=== PATIENT | female | born 2000 | race Caucasian/White ===

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

== ENCOUNTER 2018-02-11 21:09 | Emergency (ER) | payer MEDICAID, OTHER ==
[~2018-02-11] VITALS: Ht 172.7 cm; Wt 59.5 kg
[~2018-02-11 21:09] MED LIST changes: -BACT800T5 PO; +METR-1 PO; -VIST25CA PO
[2018-02-11 21:18] VITALS: BP 135/55; PULSE 90; RESP 18; TEMP 98.6; O2SAT 98
--- NOTE | 2018-02-11 22:41 | PD ---
HPI Chief Complaint: GI bleed Time Seen by Provider: 22:15 Travel History International Travel<30 days: No Contact w/Intl Traveler<30days: No Traveled to known affect area: No History of Present Illness HPI 17-year-old female complains of blood in the stool. Patient states that she noticed small mild blood in stool 5 days ago. Patient feeling gassy in the stomach however denies any abdominal pain. Patient states that she started noticed blood in the vagina and the stool again today. Patient denies abdominal pain today also. Patient denies any chest pain or shortness of breath. Patient denies any dysuria frequency. Patient denies any fever chills. Patient denies any back pain. PFSH Past Medical History Anxiety: Yes Musculoskeletal: Yes (scoliosis) Immunizations Current: Yes : 0 Social History Alcohol Use: No Tobacco Use: No Substance Use: No Allergies-Medications (Allergen,Severity, Reaction): Coded Allergies: No Known Allergies (Unverified Adverse Reaction, Unknown, 02/11/18) Reported Meds & Prescriptions Reported Meds & Active Scripts Active Review of Systems General / Constitutional: No: Fever Eyes: No: Visual changes HENT: No: Headaches Cardiovascular: No: Chest Pain or Discomfort Respiratory: No: Shortness of Breath Gastrointestinal: Positive: Hematochezia, No: Abdominal Pain Genitourinary: No: Dysuria Musculoskeletal: No: Pain Skin: No Rash Neurologic: No: Weakness Psychiatric: No: Depression Endocrine: No: Polydipsia Hematologic/Lymphatic: No: Easy Bruising Physical Exam Narrative GENERAL: Well-nourished, well-developed patient. SKIN: Focused skin assessment warm/dry. HEAD: Normocephalic. EYES: No scleral icterus. No injection or drainage. NECK: Supple, trachea midline. No JVD or lymphadenopathy. CARDIOVASCULAR: Regular rate and rhythm without murmurs, gallops, or rubs. RESPIRATORY: Breath sounds equal bilaterally. No accessory muscle use. GASTROINTESTINAL: Abdomen soft, non-tender, nondistended. Rectal exam Hemoccult negative. MUSCULOSKELETAL: No cyanosis, or edema. BACK: Nontender without obvious deformity. No CVA tenderness. Data Data Last Documented VS Vital Signs Date Time Temp Pulse Resp B/P (MAP) Pulse Ox O2 Delivery O2 Flow Rate FiO2 02/11/18 23:01 79 16 110/67 (81) 98 02/11/18 21:18 98.6 Orders Orders Ed Discharge Order (02/11/18 22:41) MDM Medical Decision Making Medical Screen Exam Complete: Yes Emergency Medical Condition: Yes Differential Diagnosis Differential diagnosis including GI bleed, hemorrhoidal bleed, AV malformation, gastroenteritis. Narrative Course 17-year-old female complains of blood per stool. Rectal exam negative today. Patient had no abdominal pain. Patient's vital signs stable. Patient advised to follow-up with media sales consultant if persistent problem. Diagnosis Primary Impression: GI bleed Qualified Codes: K92.2 - Gastrointestinal hemorrhage, unspecified Additional Instructions: Advised patient to follow-up with media sales consultant. Return if persistent bleeding or worse Med/Other Pt SpecificInfo: No Meds Exist/No RX given Disposition: 01 DISCHARGE HOME Condition: Stable James Martinez MD Feb 11, 2018 22:41
[2018-02-11 23:01] VITALS: BP 110/67
== END 2018-02-11 23:02 | disposition home or self-care (01) ==
LOC: PHED 21:09
DX: K92.1 Melena (principal)
CPT/HCPCS: 99284